=== PATIENT | female | born 1995 | race Caucasian/White ===

== ENCOUNTER 2017-05-28 18:29 | Emergency (ER) | payer OTHER ==
[~2017-05-28] VITALS: Ht 152.4 cm; Wt 56.4 kg
[~2017-05-28 18:29] MED LIST: BCPILLS PO
[2017-05-28 18:41] VITALS: TEMP 36.6; Ht 152.4 cm; Wt 56.4 kg
[2017-05-28] MEDS ORDERED: BUPR-83 PO (19:00)
[2017-05-28] MEDS ORDERED: SERT-234 PO (19:00)
[2017-05-28] MEDS ORDERED: TOPI50TA16 PO (19:00)
[2017-05-28] MEDS ORDERED: DOCU100C31 PO (19:00)
[2017-05-28] MEDS ORDERED: COUGH DROP (SUGAR FREE) LOZ 24 LOZ/1 BOX PO STA (19:12)
[2017-05-28] MEDS ORDERED: IBUPROFEN 200 MG TAB PO STA (19:12)
[2017-05-28] MEDS ORDERED: ACETAMINOPHEN 500 MG TAB PO STA (19:12)
[2017-05-28] MEDS ORDERED: DOXYCYCLINE HYCLATE 100 MG CAP PO STA (19:17)
--- NOTE | 2017-05-28 19:19 | EMERGENCY ROOM VISIT NOTE ---
History Report prepared by Aleyda: Jose Perez Under the Supervision of: Dr. Joe Alston M.D. First contact with patient: 18:46 Chief Complaint: COUGH Stated Complaint: DEBILITATING COUGH, LUNG PAIN LASTING 3+ WEEKS History of Present Illness The patient is a 21 year old white female with a past medical history of cluster headaches and depression who presents to the ED with a persistent cough for three weeks EVS TECH. Positive chest pain, congestion, productive cough, chills , general weakness, shortness of breath, loss of appetite, and loss of voice. Negative fever and sore throat. She notes that it hurts to breathe and that she has lost her voice twice in the last three weeks. She currently rates her discomfort a 6/10 in severity. She notes that she is unable to get an appointment to see her PCP. She regularly takes Zoloft, Topamax, and control. Her LNMP was three weeks ago. She denies any history of DVT, PE, CO, or CAD. She notes that she has not received the flu shot this season. She notes occasional alcohol use. She denies any history of tobacco use. Source of History: patient Onset: three weeks EVS TECH Position: other (global ) Symptom Intensity: 6/10 Quality: other (cough) Timing: other (persistent) Associated Symptoms: + chills, + cough (productive), + chest pain, + SOB, + weakness (general), No fevers, No sorethroat Note: She notes congestion, loss of appetite, and loss of voice. Review of Systems See HPI for pertinent positives and negatives. A total of ten systems were reviewed and were otherwise negative. Past Medical & Surgical Medical Problems: (1) Cluster headaches (2) Depression (3) PNA (pneumonia) Family History Family history was reviewed; no changes noted. Social History Smoking Status: Never Smoker Alcohol Use: occasionally Drug Use: none Marital Status: single Housing Status: lives with family Occupation Status: employed, student Current/Historical Medications Scheduled Control Pills ( Control Pills), 1 TAB PO DAILY Bupropion (Wellbutrin), 100 MG PO QAM Docusate Sodium (Docusate Sodium), 100 MG PO BID Doxycycline Monohydrate (Monodox), 100 MG PO BID Sertraline (Zoloft), 100 MG PO QAM Topiramate (Topamax), 50 MG PO BID Scheduled PRN Hydrocodone W/ Homatropine (Hycodan 5/1.5MG 5 Ml), 5 ML PO Q6H PRN for Cough Allergies Coded Allergies: Azithromycin (Verified Allergy, Unknown, happened as a child-rash, 05/28/17) Physical Exam Vital Signs Date Time Temp Pulse Resp B/P (MAP) Pulse Ox O2 Delivery O2 Flow Rate FiO2 05/28/17 18:41 36.6 54 20 126/75 98 Room Air Physical Exam GENERAL: Awake, alert, well-appearing, NAD HENT: Normocephalic, atraumatic. Posterior oropharynx is clear. EYES: Normal conjunctiva. Sclera non-icteric. NECK: Supple. No nuchal rigidity. FROM. No stridor over anterior neck. RESPIRATORY: CTAB, no rhonchi, wheezing, crackles CARDIAC: RRR, no MRG ABDOMEN: Soft, NTND, BS+ MSK: No chest wall TTP, no LE edema NEURO: GCS 15, CN 2-12 intact, moves all 4s on command SKIN: No rash or jaundice noted. Medical Decision & Procedures Medications Administered Medications (Trade) Dose Ordered Sig/Sharon Route Start Time Stop Time Status Last Admin Dose Admin Prednisone (PredniSONE TAB) 50 mg NOW STAT PO 05/28/17 19:12 05/28/17 19:15 DC 05/28/17 19:31 50 MG Ibuprofen (Advil Tab) 400 mg NOW STAT PO 05/28/17 19:12 05/28/17 19:15 DC 05/28/17 19:32 400 MG Acetaminophen (Tylenol Tab) 1,000 mg NOW STAT PO 05/28/17 19:12 05/28/17 19:15 DC 05/28/17 19:33 1,000 MG Menthol (Nice Kenia) 1 kenia NOW STAT PO 05/28/17 19:12 05/28/17 19:15 DC 05/28/17 19:33 1 KENIA Doxycycline Hyclate (Vibramycin Cap) 100 mg NOW STAT PO 05/28/17 19:17 05/28/17 19:18 DC 05/28/17 19:31 100 MG ECG Indication: other (cough) Rate (beats per minute): 51 Rhythm: sinus bradycardia Findings: nonspecific-ST abn, other (Normal intervals. Normal axis. ) ED Course 1855: The patient was evaluated in room C2B. A complete history and physical exam was performed. 2017: I reassessed the patient at this time. She is feeling better and resting comfortably. I discussed the results and treatment plan with the patient. I answered all pertaining questions that she had. She expressed understanding and verbalized agreement. The patient will be discharged home. Medical Decision The patient is a 21 year old white female with a past medical history of cluster headaches and depression who presents to the ED with a persistent cough for three weeks EVS TECH. Prior records/ancillary studies reviewed. Triage Nursing notes reviewed. The patient's history was concerning for fever. Differential diagnosis: Etiologies such as viral syndrome, otitis, pharyngitis, pneumonia, influenza, meningitis, urinary tract infection, sepsis, bacteremia, as well as others were entertained. Patient was seen and evaluated the bedside. Patient has had some persistent productive cough which she describes as purulent nature. Patient is also had some issues with hoarse voice. Patient on exam is very well-appearing and doesn 't have any obvious signs of infection. Patient is afebrile with stable vital signs. Patient did say that she has noticed some scant blood within her productive cough. Patient denies any history of DVT or PE. Believe that this is likely more related to bronchitis any PE. Patient did have an EKG which does not show any signs of right sided heart strain. Patient was not tachypnea , hypoxic, nor tachycardic. I did discuss that we could get things like chest x -rays or blood work that if we were entertained her empirically we may not need to do that. Patient was offered these items which she declined. Patient was given pain medication as well as a first dose of antibiotics for possible bronchitis. Patient does have a prior history was a throw mycin allergy with a rash which she was given doxycycline. Upon reassessment the patient was feeling mildly improved the patient was told she does have her prescription sent to her pharmacy. Patient was agreeable to outpatient follow-up and treatment at this time. Patient was discharged home. Again I believe the patient is more likely a bronchitis versus pneumonia and is a very healthy young woman who is suitable for outpatient follow-up and treatment. Patient was given strict follow-up instructions and warning signs for which to return. Patient was agreeable to this plan of care. Patient was given strict follow-up, discharge, and return precautions. All questions were answered. Patient was deemed suitable for outpatient follow-up at this time. Patient agreed with the plan of care and was safely discharged home. Medication Reconcilliation Current Medication List: was personally reviewed by me Blood Pressure Screening Patient's blood pressure: Normal blood pressure Impression Primary Impression: Acute bronchitis Additional Impressions: Cough Upper respiratory infection Scribe Attestation The scribe's documentation has been prepared under my direction and personally reviewed by me in its entirety. I confirm that the note above accurately reflects all work, treatment, procedures, and medical decision making performed by me. Departure Information Dispostion Home / Self-Care Prescriptions Prednisone (PREDNISONE) 50 Mg Tab 50 MG PO DAILY for 4 Days, #4 TAB Prov: Joe Alston M.D. 05/28/17 Hydrocodone W/ Homatropine (HYCODAN 5/1.5MG 5 ML) 1 Syp Syp 5 ML PO Q6H Y for Cough, #60 ML Prov: Joe Alston M.D. 05/28/17 Doxycycline Monohydrate (Monodox) 100 Mg Cap 100 MG PO BID, #7 CAP Prov: Joe Alston M.D. 05/28/17 Referrals No Doctor, Assigned (PCP) Forms HOME CARE DOCUMENTATION FORM, IMPORTANT VISIT INFORMATION Patient Instructions Bronchitis Chronic Dc, ED Laryngitis, My [facility] Additional Instructions Please return to the emergency department if you have worsening or recurrent symptoms not amenable to at-home treatment. Please call for a follow-up appointment with her primary care physician. Please take your medications as prescribed. If you have other concerns and/or complaints please feel free to also call your primary care physician's office or return the ED for further evaluation, management, and treatment. Take the steroids preferably in the morning and with food. Consider taking a Zantac or Pepcid help with any GI upset. You may take tylenol 1000 mg every 6 hours as needed for pain. Take your medications as prescribed. You have been examined and treated today on an emergency basis only. This is not a substitute for, or an effort to provide, complete comprehensive medical care. It is impossible to recognize and treat all injuries or illnesses in a single emergency department visit. It is therefore important that you follow up closely with [facility], your PCP, and/or your specialist(s). Call as soon as possible for an appointment. Thank you for your time and consideration. I look forward to speaking with you again soon. Please don't hesitate to call us if you have any questions. Problem Qualifiers Primary Impression: Acute bronchitis Bronchitis organism: unspecified organism Qualified Codes: J20.9 - Acute bronchitis, unspecified Additional Impressions: Upper respiratory infection URI type: unspecified URI Qualified Codes: J06.9 - Acute upper respiratory infection, unspecified
[2017-05-28] MEDS ORDERED: DOXY100C76 PO (19:42)
[2017-05-28] MEDS ORDERED: HYDR5SYP11 PO (19:42)
[2017-05-28] MEDS ORDERED: PRED50TA PO (20:36)
[2017-05-28 20:42] VITALS: BP 111/48; PULSE 54; O2SAT 100
== END 2017-05-28 18:40 | disposition home or self-care (01) ==
LOC: C.EDB 18:30 → C.EDC 18:40
DX: J20.9 Acute bronchitis, unspecified (principal); J06.9 Acute upper respiratory infection, unspecified; R00.1 Bradycardia, unspecified; F32.9 Major depressive disorder, single episode, unspecified; Z79.899 Other long term (current) drug therapy; Z88.3 Allergy status to other anti-infective agents